=== PATIENT | male | born 1975 | race Caucasian/White ===

== ENCOUNTER 2018-10-30 12:17 | Emergency (ER) | payer OTHER ==
[~2018-10-30] VITALS: Ht 180.3 cm; Wt 86.5 kg
[2018-10-30] MEDS ORDERED: CENTCHW4 PO (12:21)
--- NOTE | 2018-10-30 14:11 | REP ---
CT Head without contrast HISTORY: Injury COMPARISON: None There is no intraparenchymal hemorrhage, acute infarct, mass or midline shift. The ventricular system is normal in appearance. There is no extra cerebral collection. There is no fracture. The visualized sinuses are clear. IMPRESSION: There is no intracranial lesion. Electronically Signed by Kurt Hernandez MD 10/30/2018 02:02 P
[2018-10-30 14:13] VITALS: BP 116/73
== END 2018-10-30 14:18 | disposition home or self-care (01) ==
LOC: M ED 12:17
DX: S09.90XA Unspecified injury of head, initial encounter (principal); W22.8XXA Striking against or struck by other objects, initial encounter; Y92.9 Unspecified place or not applicable; Y93.9 Activity, unspecified; Y99.9 Unspecified external cause status; Z79.899 Other long term (current) drug therapy

== ENCOUNTER → 2019-02-19 | Outpatient (CLI) | payer OTHER ==
[~2019-02-19] MED LIST: CENTCHW4 PO; PROHANCE 279.3MG/ML 15ML VIAL (A9576) As Ordered ONE; PROHANCE 279.3MG/ML 5ML VIAL (A9576) As Ordered ONE
--- NOTE | 2019-02-20 08:27 | REPVR ---
EXAM: MR Head Without and With Contrast EXAM DATE/TIME: 02/19/2019 5:02 PM CLINICAL HISTORY: 43 years old, male; Other: Hearing loss tinitus; Patient HX: Tinnitus TECHNIQUE: Imaging protocol: MR of the head without and with intravenous contrast. Contrast material: PROHANCE; Contrast volume: 18 ml; Contrast route: 23G BUTTERFLY; COMPARISON: CT Head without contrast 10/30/2018 1:25 PM FINDINGS: Brain: No evidence of acute cortical infarct. No evidence of restricted diffusion. There is no evidence of intracranial hemorrhage. No abnormal enhancement. Flair hyperintensity in the right side of the rajinder on a single image and not seen on T2 weighted images, likely artifact. On high resolution imaging no evidence of CP angle mass. The seventh and eighth nerves are normally demonstrated. No abnormal enhancement of the seventh or eighth nerves, cochlea or vestibule. Ventricles: The ventricular system is midline and appropriate in size. No hydrocephalus. Bones/joints: No suspicious marrow replacing lesions. Soft tissues: Normal. Sinuses: The demonstrated paranasal sinuses are free of air-fluid level or suspicious mass. Mild mucosal changes. Mastoid air cells: Mastoids are free of acute inflammatory change. Orbits: Unremarkable. IMPRESSION: No evidence of acute ischemia, hemorrhage or mass effect. No suspicious enhancement. No CP angle mass. The seventh and eighth nerves are normally demonstrated on high resolution imaging. Flair hyperintensity in the right side of the rajinder on a single image and not seen on T2 weighted images, likely artifact. Electronically signed by: Eren Brewster On 02/20/2019 08:27:10 AM
== END ==
LOC: M RAD 15:53
PROVIDERS: ATTEND Specialist
DX: H93.12 Tinnitus, left ear (principal)
CPT/HCPCS: 70553; A9576

== ENCOUNTER → 2020-05-10 | Outpatient (RCR) | payer OTHER ==
[~2020-05-10] MED LIST changes: -PROHANCE 279.3MG/ML 15ML VIAL (A9576) As Ordered ONE; -PROHANCE 279.3MG/ML 5ML VIAL (A9576) As Ordered ONE
== END ==
LOC: M PT 05-01 11:13
PROVIDERS: ATTEND Physician Assistant
DX: M47.11 Other spondylosis with myelopathy, occipito-atlanto-axial region (principal)

== ENCOUNTER 2020-05-24 11:43 | Outpatient (RCR) | payer OTHER | END 2020-06-10 | LOC: M PT 11:43 | PROVIDERS: ATTEND Physician Assistant | DX: Z51.89 Encounter for other specified aftercare (principal); M77.11 Lateral epicondylitis, right elbow ==

== ENCOUNTER → 2022-08-28 | Outpatient (CLI) | payer OTHER | LOC: M WUC 08:12 | PROVIDERS: ATTEND Physician Assistant | DX: M54.2 Cervicalgia (principal); M54.12 Radiculopathy, cervical region ==

== ENCOUNTER → 2023-01-28 | Outpatient (CLI) | payer OTHER | LOC: M PLAIMG 06:37 | PROVIDERS: ATTEND Physician Assistant | DX: M54.2 Cervicalgia (principal) ==

== ENCOUNTER → 2024-09-20 | Outpatient (CLI) | payer OTHER | LOC: M WUC 14:13 | PROVIDERS: ATTEND Internal Medicine | DX: M65.231 Calcific tendinitis, right forearm (principal); M19.011 Primary osteoarthritis, right shoulder ==

== ENCOUNTER → 2025-07-19 | Outpatient (CLI) | payer OTHER | LOC: M WUC 12:43 | PROVIDERS: ATTEND Physician Assistant | DX: R22.31 Localized swelling, mass and lump, right upper limb (principal) ==